=== PATIENT | male | born 2000 | race Caucasian/White ===

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

== ENCOUNTER 2022-06-28 01:31 | Emergency (ER) | payer OTHER ==
[2022-06-28] MEDS ORDERED: NAPROXEN250 MG PO (02:01)
== END 2022-06-28 03:00 | disposition home or self-care (01) ==
LOC: ED 01:31
DX: S63.92XA Sprain of unspecified part of left wrist and hand, initial encounter (principal); S63.502A Unspecified sprain of left wrist, initial encounter; Z88.0 Allergy status to penicillin; Z88.1 Allergy status to other antibiotic agents; Z79.899 Other long term (current) drug therapy; W22.8XXA Striking against or struck by other objects, initial encounter; Y93.89 Activity, other specified; Y92.89 Other specified places as the place of occurrence of the external cause; Y99.8 Other external cause status

== ENCOUNTER 2024-04-10 19:01 | Emergency (ER) | payer OTHER ==
[~2024-04-10] VITALS: Ht 180.3 cm; Wt 108.9 kg
[~2024-04-10 19:01] MED LIST changes: +NAPROXEN250 MG PO
== END 2024-04-10 20:20 | disposition home or self-care (01) ==
LOC: ED 19:01
DX: K64.4 Residual hemorrhoidal skin tags (principal); F90.9 Attention-deficit hyperactivity disorder, unspecified type

== ENCOUNTER 2025-08-12 15:35 | Emergency (ER) | payer OTHER ==
[~2025-08-12] VITALS: Ht 180.3 cm; Wt 108.9 kg
[2025-08-12] MEDS ORDERED: SODIUM CHLORIDE 0.9% 1,000 ML IV ONE (16:20)
[2025-08-12] MEDS ORDERED: IOHEXOL 300 MG/ML 100 ML VIAL IV ONE (16:30)
[2025-08-12 16:45] LABS: BASO # 0.1 10*3/uL (0.0-0.1); BASO % 0.5 % (0.0-1.0); EOS # 0.1 10*3/uL (0.0-0.4); EOS % 0.5 % (1.0-4.0); MEAN CELL VOLUME 83.1 fl (80.0-94.0); MEAN CORPUSCULAR HGB 28.1 pg (27.0-31.0); MEAN PLATELET VOLUME 10.2 fl (9.6-12.3); MONO # 1.1 10*3/uL (0.1-1.0); MONO % 6.9 % (3.0-9.0); NEUT # 11.8 10*3/uL (2.3-7.9); NEUT % 73.6 % (47.0-73.0); NUCLEATED RED BLOOD CELL 0.0 % (0.0-0.0); NUCLEATED RED BLOOD CELL 0.0 10*3/uL (0.0-0.0); PLATELET COUNT AUTOMATED 428 10*3/uL (130-400); RED CELL DISTRI WIDTH 12.2 % (0-14.5)
[2025-08-12 16:46] LABS: BILIRUBIN Negative (Negative); BLOOD Negative (Negative); CLARITY Turbid (Clear); COLOR Yellow (Yellow); KETONE Negative (Negative); LEUKO ESTERASE Negative (Negative); NITRITE Negative (Negative); PH 8.0 (4.5-8.0); SPECIFIC GRAVITY 1.025 (1.001-1.030); UROBILINOGEN 1.0 E.U./dl (0.0-1.0)
[2025-08-12] MEDS ORDERED: IOHEXOL 300 MG/ML 100 ML VIAL ONE (16:59)
[2025-08-12 17:04] LABS: BACTERIA 3+
[2025-08-12 17:06] LABS: BUN 12 mg/dl (9-23); SGPT/ALT 23 U/L (5-49)
[2025-08-12] MEDS ORDERED: CIPRO500 MG PO (18:21)
[2025-08-12] MEDS ORDERED: METRONIDAZOLE500 M1 PO (18:21)
[2025-08-12] MEDS ORDERED: Ciprofloxacin Hydrochloride 500 MG TAB PO ONE (18:25)
[2025-08-12] MEDS ORDERED: metroNIDAZOLE 500 MG TAB PO ONE (18:25)
== END 2025-08-12 18:32 | disposition home or self-care (01) ==
LOC: ED 15:35
PROVIDERS: Nurse Practitioner Family
DX: K58.9 Irritable bowel syndrome, unspecified (principal); D72.829 Elevated white blood cell count, unspecified; K62.5 Hemorrhage of anus and rectum; Z88.0 Allergy status to penicillin